=== PATIENT | male | born 1950 | race Caucasian/White ===

== ENCOUNTER → 2016-03-22 | Day surgery (SDC) | payer MEDICARE, OTHER ==
[~2016-03-22] VITALS: Ht 172.7 cm; Wt 80.1 kg
[~2016-03-22] MED LIST: *morphine SULFATE 8 MG/ML PERIprocedure ONLY ONE; ASPI1TAB69 PO; CEPH-459 PO; CLON1TAB PO; DEXAMETHASONE SOD PHOS 4 MG/ML VIAL ONE; DO NOT ADM ANY ANTICOAGULANT DRUGS XX PRN; FAMOTIDINE 20 MG/2 ML VIAL ONE; INSULIN HUMAN REGULAR 1,000 UNITS/10 ML VIAL SQ PRN; LACTATED RINGER'S 1000 ML IV SCH; LISI10TA3 PO; MACR100C2 PO; METO25TA3 PO; METOPROLOL TARTRATE 25 MG TAB PO PRN; MIDAZOLAM HCL 2 MG/2 ML VIAL ONE; ONDANSETRON HCL 4 MG/2 ML VIAL IV PUSH PRN; PHEN0.4T PO; PROPOFOL 200 MG/20 ML AMP IV ONE; SODIUM CHLORID 0.9% 500 ML IV SCH; TEST200I12 IM; TEST200I13 IM; VESI5TAB PO; ZOCO40TA PO; fentaNYL CITRATE 250 MCG/5 ML AMP ONE; oxyCODONE/ACETAMINOPHEN 5 MG/325 MG TAB PO PRN
[2016-03-22 09:34] VITALS: BP 120/69; PULSE 73; RESP 16; TEMP 98; O2SAT 97
[2016-03-22 09:58] LABS: AUTOMATED NEUTROPHIL # 2.2 TH/MM3 (1.8-7.7); BASOPHIL % 0.7 % (0.0-2.0); EOSINOPHIL # 0.4 TH/MM3 (0-0.4); EOSINOPHIL % 7.9 % (0.0-4.0); HEMATOCRIT 43.9 % (39.0-51.0); HEMO FLAGS DIFF FINAL; LYMPHOCYTE # 1.5 TH/MM3 (1.0-4.8); MEAN CELL VOLUME 87.6 FL (80.0-100.0); MEAN CORPUSCULAR HEMOGLOBIN 30.5 PG (27.0-34.0); MEAN CORPUSCULAR HGB CONC 34.8 % (32.0-36.0); MONO % 9.9 % (0.0-8.0); NEUT % 48.5 % (16.0-70.0); PLATELET COUNT 156 TH/MM3 (150-450); RED BLOOD COUNT 5.01 MIL/MM3 (4.50-5.90); RED CELL DISTRIBUTION WIDTH 13.9 % (11.6-17.2); WHITE BLOOD COUNT 4.5 TH/MM3 (4.0-11.0)
[2016-03-22 14:55] VITALS: BP 157/85; PULSE 74; RESP 16; TEMP 97.7; O2SAT 98
--- NOTE | 2016-03-25 14:11 | MP ---
cc: MERON COVARRUBIAS MD DATE OF SURGERY 03/22/2016 INDICATIONS FOR PROCEDURE This is the case of a pleasant 66-year-old gentleman with lower urinary tract symptoms who presents today for cystoscopic evaluation to rule out bladder outlet obstruction. PREOPERATIVE DIAGNOSIS Lower urinary tract symptoms rule out bladder outlet obstruction. POSTOPERATIVE DIAGNOSIS Urethral stricture formation. ATTENDING PHYSICIAN Dr. Covarrubias ANESTHESIA General PROCEDURES PERFORMED Cystoscopy and dilation of bulbar urethral stricture. COMPLICATIONS None ESTIMATED BLOOD LOSS None SPECIMENS None OPERATIVE PROCEDURE IN DETAIL The patient was brought to the operating room suite and placed supine on the cystoscopy table. He was then placed under general anesthesia. He was then repositioned in the dorsal lithotomy position and prepped and draped in normal sterile fashion. After an appropriate time-out was undertaken, I proceeded with cystoscopic evaluation utilizing the rigid cystoscope with the 20-Iraqi sheath and the 30 degrees lens. The urethra was patent up to the point of the bulbar urethra which had circumferential narrowing noted. The narrowing was such that it precluded passage of the cystoscope. Male sounds were then utilized and the stricture was gently dilated starting at 16-Iraqi and sequentially dilating to 30-Iraqi. Next, the scope was reintroduced and easily passed through the narrowed segment. The prostatic urethra was not obstructing. Further passive of the cystoscope within the urinary bladder revealed both right and left ureteral orifices to be in correct anatomic position effluxing clear yellow urine. There were no bladder mucosal lesions, calculi or diverticular formation. The bladder itself was not trabeculated. The cystoscope was next withdrawn and a 20-Iraqi 10 cc [place] catheter was placed and connected to gravity drainage. The patient tolerated the procedures without complications and was transferred to the PACU in satisfactory condition. MD PATI Leon/ROROL /1:09 PM /2:08 PM
== END | disposition home or self-care (01) ==
LOC: HSDC 08:54
PROVIDERS: ATTEND Urology
DX: N35.8 Other urethral stricture (principal); E29.1 Testicular hypofunction
CPT/HCPCS: 00910; 52281; 85025; J1100; J2250; J2270; J3010